=== PATIENT | female | born 1990 | race Caucasian/White ===

== ENCOUNTER 2019-02-06 23:46 | Emergency (ER) | payer OTHER ==
[~2019-02-06] VITALS: Ht 157.5 cm; Wt 98.4 kg
[2019-02-07 00:29] LABS: URINE BILIRUBIN NEGATIVE (Negative); URINE BLOOD NEGATIVE (Negative); URINE CLARITY CLEAR; URINE COLOR YELLOW; URINE GLUCOSE-RANDOM NEGATIVE (Negative); URINE KETONES NEGATIVE (Negative); URINE LEUKOCYTES NEGATIVE (Negative); URINE NITRITE NEGATIVE (Negative); URINE PROTEIN NEGATIVE (Negative); URINE SPECIFIC GRAVITY >= 1.030 (1.005-1.030); URINE UROBILINOGEN 0.2 E.U./dl (0.2-1.0)
[2019-02-07 00:43] VITALS: BP 132/68
== END 2019-02-07 00:44 | disposition home or self-care (01) ==
LOC: M.ERS 23:46
PROVIDERS: Emergency Medicine
DX: O26.893 Other specified pregnancy related conditions, third trimester (principal); Z3A.32 32 weeks gestation of pregnancy; H53.8 Other visual disturbances; Z88.0 Allergy status to penicillin

== ENCOUNTER 2019-08-14 16:25 | Emergency (ER) | payer OTHER ==
[~2019-08-14] VITALS: Ht 177.8 cm; Wt 99.8 kg
[2019-08-14] MEDS ORDERED: ZYRTEC 10 MG TA10 MG PO (17:12)
[2019-08-14] MEDS ORDERED: PREDNISONE 20 M20 M1 PO (17:12)
[2019-08-14] MEDS ORDERED: PEPCID40 MG PO (17:12)
[2019-08-14 17:16] VITALS: BP 119/70
== END 2019-08-14 17:17 | disposition home or self-care (01) ==
LOC: M.ERS 16:25
DX: L50.9 Urticaria, unspecified (principal); Z88.0 Allergy status to penicillin; Z91.013 Allergy to seafood

== ENCOUNTER 2019-11-01 21:13 | Emergency (ER) | payer OTHER ==
[~2019-11-01] VITALS: Ht 157.5 cm; Wt 99.8 kg
[~2019-11-01 21:13] MED LIST: PEPCID40 MG PO; PREDNISONE 20 M20 M1 PO; ZYRTEC 10 MG TA10 MG PO
[2019-11-01 21:42] LABS: URINE BILIRUBIN NEGATIVE (Negative); URINE BLOOD NEGATIVE (Negative); URINE CLARITY CLEAR; URINE COLOR YELLOW; URINE GLUCOSE-RANDOM NEGATIVE (Negative); URINE KETONES NEGATIVE (Negative); URINE LEUKOCYTES-REFLEX NEGATIVE (Negative); URINE NITRITE-REFLEX NEGATIVE (Negative); URINE PROTEIN TRACE (Negative); URINE SPECIFIC GRAVITY >= 1.030 (1.005-1.030); URINE UROBILINOGEN 0.2 E.U./dl (0.2-1.0)
[2019-11-01 21:50] LABS: HEMATOCRIT 40.8 % (37.0-47.0); MCH 29.9 pg (26.0-34.0); MCHC 34.2 g/dL (28.0-37.0); MCV 87.6 fL (80.0-100.0); MPV 7.6 fl. (7.2-11.1); NUCLEATED RBCS 0 /100WBC; PLATELET COUNT* 226 thou/uL (150-400); RBC 4.66 mil/uL (4.20-5.00); RDW-CV 13.1 % (10.5-14.5); WBC 7.6 thou/uL (4.0-11.0)
[2019-11-01 22:02] LABS: CALCIUM 7.7 mg/dL (8.5-10.1); CREATININE 0.7 mg/dL (0.6-1.3); POTASSIUM 3.6 mmol/L (3.5-5.1)
[2019-11-01 22:07] LABS: ALBUMIN 3.2 g/dL (3.4-5.0); TOTAL BILIRUBIN 0.3 mg/dL (<0.1-1.0); TOTAL PROTEIN 6.8 g/dL (6.4-8.2)
[2019-11-01 22:14] LABS: ABSOLUTE MONOCYTES 0.4 thou/uL (0.0-1.2); ABSOLUTE NEUTROPHILS 6.2 thou/uL (1.6-8.1); PLATELET ESTIMATE ADEQUATE; TOXIC GRANULATION 1+
[2019-11-01] MEDS ORDERED: ZOFRAN ODT4 MG PO (23:16)
[2019-11-01 23:37] VITALS: BP 115/80
== END 2019-11-01 23:38 | disposition home or self-care (01) ==
LOC: M.ERS 21:13
PROVIDERS: Emergency Medicine
DX: R11.2 Nausea with vomiting, unspecified (principal); R19.7 Diarrhea, unspecified; F17.210 Nicotine dependence, cigarettes, uncomplicated; Z88.0 Allergy status to penicillin; Z91.013 Allergy to seafood

== ENCOUNTER 2020-01-09 04:39 | Emergency (ER) | payer OTHER ==
[~2020-01-09] VITALS: Ht 157.5 cm; Wt 107.0 kg
[~2020-01-09 04:39] MED LIST changes: +ZOFRAN ODT4 MG PO
[2020-01-09 05:24] LABS: INFLUENZA A ANTIGEN Negative (Negative); INFLUENZA B ANTIGEN Negative (Negative)
[2020-01-09] MEDS ORDERED: PROMETH-CODEIN 65 ML PO (05:42)
[2020-01-09 05:51] VITALS: BP 125/87
== END 2020-01-09 05:52 | disposition home or self-care (01) ==
LOC: M.ERS 04:39
PROVIDERS: Emergency Medicine
DX: J06.9 Acute upper respiratory infection, unspecified (principal); Z91.013 Allergy to seafood; Z88.0 Allergy status to penicillin

== ENCOUNTER 2020-02-29 18:40 | Emergency (ER) | payer OTHER ==
[~2020-02-29] VITALS: Ht 157.5 cm; Wt 104.3 kg
[~2020-02-29 18:40] MED LIST changes: +PROMETH-CODEIN 65 ML PO
[2020-02-29] MEDS ORDERED: NAPROSYN500 M1 PO (18:57)
[2020-02-29 19:15] LABS: URINE BILIRUBIN NEGATIVE (Negative); URINE BLOOD NEGATIVE (Negative); URINE CLARITY SL CLOUDY; URINE COLOR YELLOW; URINE GLUCOSE-RANDOM NEGATIVE (Negative); URINE KETONES NEGATIVE (Negative); URINE LEUKOCYTES-REFLEX 1+ (Negative); URINE NITRITE-REFLEX NEGATIVE (Negative); URINE PROTEIN NEGATIVE (Negative); URINE SPECIFIC GRAVITY >= 1.030 (1.005-1.030); URINE UROBILINOGEN 0.2 E.U./dl (0.2-1.0)
[2020-02-29 19:20] LABS: SQUAMOUS >10 Many /LPF (0-3)
[2020-02-29 19:22] LABS: CASTS None Seen /LPF (None Seen); CRYSTALS None Seen /LPF (None Seen); MUCUS 4-6 Moderate strn/LPF (None Seen); URINE RBC 0-2 Rare /HPF (0-2); URINE WBC-REFLEX 0-5 Rare /HPF (0-5)
[2020-02-29 19:55] VITALS: BP 113/78
== END 2020-02-29 19:55 | disposition home or self-care (01) ==
LOC: M.ERS 18:40
PROVIDERS: Nurse Practitioner Family
DX: K59.00 Constipation, unspecified (principal); K62.5 Hemorrhage of anus and rectum; Z91.013 Allergy to seafood; Z88.0 Allergy status to penicillin

== ENCOUNTER 2020-04-10 18:33 | Emergency (ER) | payer OTHER ==
[~2020-04-10] VITALS: Ht 157.5 cm; Wt 108.9 kg
[~2020-04-10 18:33] MED LIST changes: +NAPROSYN500 M1 PO
[2020-04-10] MEDS ORDERED: TRIAMCINOLONE A80 G2 TOP (20:11)
[2020-04-10] MEDS ORDERED: PREDNISONE 20 M20 M1 PO (20:11)
[2020-04-10 20:24] VITALS: BP 141/85
== END 2020-04-10 20:24 | disposition home or self-care (01) ==
LOC: M.ERS 18:33
DX: L25.9 Unspecified contact dermatitis, unspecified cause (principal); Z91.013 Allergy to seafood; Z88.0 Allergy status to penicillin